=== PATIENT | male | born 1985 | race Caucasian/White ===

== ENCOUNTER 2023-01-01 11:25 | Inpatient (IN) | payer MEDICARE, MEDICAID ==
[2023-01-01 11:34] LABS: Actual Bicarbonate (HCO3a) 23.8 mEq/L (22-28); Analyzer IN Cardio ER; Base Excess (BEa) -5.4 mEq/L (-2.0 to +3.0); Calcium, Ionized (arterial) 1.14 mmol/L (1.12-1.30); Carboxyhemoglobin (COHb) 0.5 gm% (0.0-3.0); Hematocrit-ABG 38 % (42.0-52.0); Hemoglobin (Hb) 12.8 g/dL (14.0-18.0); O2 Tension (PaO2), arterial 126.2 mmHg (80.0-100.0); Potassium - ABG Lab 5.04 mmol/L (3.70-5.30)
[2023-01-01 11:37] LABS: CO2 Tension 64.8 mmHg (35.0-45.0); Puncture Site RRA; pH, Arterial 7.183 (7.35-7.45)
[2023-01-01] MEDS ORDERED: Sodium Bicarb 50 MEQ/50 ML VIAL ONE (11:37)
[2023-01-01] MEDS ORDERED: Propofol BOLUS 1,000 MG/100 ML VIAL IV PRN (11:45)
[2023-01-01] MEDS ORDERED: DISCONTINUE PREVIOUS NARCOTIC PAIN MEDICATIONS AND BENZODIAZEPINES FS SCH (11:45)
[2023-01-01] MEDS ORDERED: Fentanyl CADD 100 ML IV SCH (11:45)
[2023-01-01] MEDS ORDERED: Fentanyl BOLUS 250 ML IVPB PRN (11:45)
[2023-01-01] MEDS ORDERED: Iopamidol-370 76% 500 ML MDV (1 ML CHARGE) ONE (11:49)
[2023-01-01 11:55] LABS: #Monocytes 0.7 thou/uL (0.11-0.59); %Basophils 0.4 % (0.0-1.0); %Eosinophils 0.3 % (0.0-10.0); %Monocytes 7.3 % (0.0-10.0); %Neutrophils 71.8 % (42.0-75.0); Hematocrit 41.4 % (42.0-52.0); Hemoglobin 12.1 g/dL (14.0-18.0); Mean Corpuscular HGB CONC 29.2 g/dL (32.0-36.0); Mean Corpuscular Hemoglobin 30.7 pg (27.0-31.0); Mean Corpuscular Volume 105.1 fl (78.0-98.0); Mean Platelet Volume 11.2 fL (7.4-10.4); Platelet Count 158 10x3/uL (130-400); RBC Distribution Width 16.6 % (11.5-14.5); Red Blood Cell (RBC) Count 3.94 mill/uL (4.70-6.10); White Blood Cell (WBC) Count 9.8 10x3/uL (4.8-10.8)
[2023-01-01] MEDS ORDERED: Propofol 1,000 MG/100 ML VIAL IV ONE (11:56)
[2023-01-01] MEDS ORDERED: Vancomycin 1 GM/200 ML (FROZEN) BAG ONE (12:13)
[2023-01-01] MEDS ORDERED: CEFAZOLIN 2 GM VIAL ONE (12:13)
[2023-01-01 12:20] LABS: ALT (SGPT) 23 U/L (8-55); AST (SGOT) 21 U/L (5-34); Albumin 3.6 g/dL (3.5-5.0); Alkaline Phosphatase 76 U/L (40-110); Anion Gap 14 mmol/L (10-20); BUN (Urea Nitrogen) 18 mg/dL (8.9-20.6); Bilirubin, Total Less than 0.2 mg/dL (0.2-1.2); Calc. Creatinine Clearance 0 mL/min (70-130); Calcium 8.4 mg/dL (7.8-10.44); Carbon Dioxide 22 mmol/L (22-29); Chloride 109 mmol/L (98-107); Estimated GFR 115; Globulin 2.7 g/dL (2.4-3.5); Glucose 121 mg/dL (70-105); Potassium 5.4 mmol/L (3.5-5.1); Protein, Total 6.3 g/dL (6.0-8.3); Sodium 140 mmol/L (136-145)
[2023-01-01 12:21] LABS: Actual Bicarbonate (HCO3a) 20.8 mEq/L (22-28); Analyzer IN Cardio ER; Base Excess (BEa) -1.2 mEq/L (-2.0 to +3.0); CO2 Tension 26.8 mmHg (35.0-45.0); Calcium, Ionized (arterial) 1.05 mmol/L (1.12-1.30); Hematocrit-ABG 35 % (42.0-52.0); Hemoglobin (Hb) 11.8 g/dL (14.0-18.0); O2 Tension (PaO2), arterial 284.1 mmHg (80.0-100.0); Potassium - ABG Lab 4.25 mmol/L (3.70-5.30); pH, Arterial 7.507 (7.35-7.45)
[2023-01-01 12:22] LABS: Puncture Site RRA
[2023-01-01 12:25] LABS: PTT 35.1 sec (22.9-36.1); Prothrombin Time 13.8 sec (12.0-14.7)
[2023-01-01] MEDS ORDERED: Cefepime 2 GM in Sodium Chloride 0.9% 100 ML IVPB SCH (12:30)
[2023-01-01 12:40] LABS: Amphetamine Not Detected (NotDetected); Barbiturates Screen Not Detected (NotDetected); Benzodiazepine Screen Detected (NotDetected); Cocaine Metabolite Screen Not Detected (NotDetected); Methadone Not Detected (NotDetected); Methamphetamine Not Detected (NotDetected); Opiate Screen Detected (NotDetected); Oxycodone Screen Detected (NotDetected); Phencyclidine (PCP) Not Detected (NotDetected); THC/Cannabinoid Screen Detected (NotDetected); Tricyclic Screen Not Detected (NotDetected)
[2023-01-01 12:45] LABS: Bilirubin Negative (Negative); Blood, Urine 2+ (Negative); CAUTI Indications for Culture Alt mental st,lethar; Clarity Clear (Clear); Glucose, Urine (Dipstick) Normal (Negative); Ketone, Urine Negative (Negative); Leukocyte 250 Leu/uL (Negative); Nitrite Negative (Negative); Protein, Urine (Dipstick) 70 mg/dL (Neg-Trace); RBC/HPF 21-50 HPF (0-3); Specific Gravity, Urine 1.023 (1.002-1.036); Squamous Epithelial 0-3 HPF (0-3); Urobilinogen Normal mg/dL (Less than 2); WBC/HPF 21-50 HPF (0-3); pH, Urine 6.5 (5.0-9.0)
[2023-01-01 12:47] LABS: Bacteria/HPF 1+ HPF (None Seen)
[2023-01-01 12:48] LABS: Urine Culture Reflex Yes Yes
[2023-01-01 12:59] LABS: Acetaminophen Less than 10 mcg/mL (10.0-30.0); Alcohol Less than 10.0 mg/dL (Less than 10); Salicylate Less than 8.0 mg/dL (15.0-30.0)
[2023-01-01 13:19] LABS: SARS-CoV-2 NAA Rapid Test Not Detected (NotDetected)
[2023-01-01] MEDS ORDERED: Aspirin 300 MG Suppository ONE (14:26)
[2023-01-01] MEDS ORDERED: Lidocaine 1% (PF) 30 ML VIAL ONE (14:51)
[2023-01-01] MEDS ORDERED: EPINEPHrine 1 MG/ML AMP ONE (14:51)
[2023-01-01] MEDS ORDERED: Bupivacaine HCl 0.5%/Epinephrine 1:200,000/PF 30 ml Vial ONE (14:51)
[2023-01-01] MEDS ORDERED: Midazolam HCl 2 mg/2 ml Vial ONE (15:03)
[2023-01-01] MEDS ORDERED: fentaNYL PF 100 MCG/2 ML SYRINGE ONE (15:03)
[2023-01-01 15:24] LABS: CKMB 9.3 ng/mL (0-6.6)
[2023-01-01] MEDS ORDERED: Ondansetron PF 4 MG/2 ML Vial IVP PRN (15:33)
[2023-01-01] MEDS ORDERED: Ipratropium/Albuterol 3 ML NEB NEB PRN (15:33)
[2023-01-01] MEDS ORDERED: Bisacodyl 5 MG TAB PO PRN (15:33)
[2023-01-01] MEDS ORDERED: Ondansetron PF 4 MG/2 ML Vial ONE (15:45)
[2023-01-01] MEDS ORDERED: Rocuronium Bromide 10 MG/ML (10ML VIAL) ONE (15:45)
[2023-01-01] MEDS: Propofol 1,000 MG/100 ML VIAL IV PRN (17:40)
[2023-01-01 18:11] LABS: Critical Call Chem Troponin I DECREASE
[2023-01-01] MEDS: Ipratropium/Albuterol 3 ML NEB NEB SCH ×2 (19:00→23:04)
[2023-01-01] MEDS: Vancomycin 1 GM in Premix Bag 1 BAG IVPB SCH (20:02)
[2023-01-01 20:54] LABS: Troponin I 0.868 ng/mL (< 0.028)
[2023-01-01] MEDS ORDERED: Vancomycin HCl 1 GM in Sodium Chloride 0.9% 250 ML 250 ML IVPB SCH (21:00)
[2023-01-01] MEDS: Cefepime 2 GM in Sodium Chloride 0.9% 100 ML IVPB SCH (21:44)
[2023-01-01] MEDS: metroNIDAZOLE 500 MG in Premix Bag 1 BAG IVPB SCH (22:55)
[2023-01-02] MEDS: Propofol 1,000 MG/100 ML VIAL IV PRN ×4 (00:04→21:47)
[2023-01-02] MEDS: Lorazepam 2 MG/ML VIAL SLOW IVP PRN ×3 (00:34→12:59)
[2023-01-02] MEDS: Vancomycin 1 GM in Premix Bag 1 BAG IVPB SCH ×3 (03:20→19:42)
[2023-01-02 05:12] LABS: #Monocytes 0.7 thou/uL (0.11-0.59); #Neutrophils 7.5 thou/uL (1.40-6.50); %Basophils 0.3 % (0.0-1.0); %Lymphocytes 11.6 % (21.0-51.0); %Monocytes 7.8 % (0.0-10.0); %Neutrophils 79.6 % (42.0-75.0); Hematocrit 36.7 % (42.0-52.0); Hemoglobin 11.9 g/dL (14.0-18.0); Mean Corpuscular HGB CONC 32.4 g/dL (32.0-36.0); Mean Corpuscular Hemoglobin 31.2 pg (27.0-31.0); Mean Platelet Volume 11.9 fL (7.4-10.4); Platelet Count 169 10x3/uL (130-400); RBC Distribution Width 15.9 % (11.5-14.5); Red Blood Cell (RBC) Count 3.81 mill/uL (4.70-6.10); White Blood Cell (WBC) Count 9.4 10x3/uL (4.8-10.8)
[2023-01-02] MEDS: metroNIDAZOLE 500 MG in Premix Bag 1 BAG IVPB SCH ×3 (05:35→21:22)
[2023-01-02 05:39] LABS: Anion Gap 13 mmol/L (10-20); BUN (Urea Nitrogen) 12 mg/dL (8.9-20.6); Calc. Creatinine Clearance 233 mL/min (70-130); Calcium 8.5 mg/dL (7.8-10.44); Carbon Dioxide 26 mmol/L (22-29); Chloride 107 mmol/L (98-107); Estimated GFR 132; Glucose 114 mg/dL (70-105); Potassium 3.4 mmol/L (3.5-5.1); Sodium 143 mmol/L (136-145)
[2023-01-02 06:12] LABS: Mean Corpuscular Volume 96.3 fl (78.0-98.0)
[2023-01-02] MEDS: Ipratropium/Albuterol 3 ML NEB NEB SCH ×4 (07:13→23:23)
[2023-01-02] MEDS: Morphine 2 MG/ML VIAL SLOW IVP PRN ×3 (07:31→21:22)
[2023-01-02] MEDS: Cefepime 2 GM in Sodium Chloride 0.9% 100 ML IVPB SCH ×2 (07:31→21:06)
[2023-01-02 11:31] LABS: Vancomycin, Trough 18.7 ug/mL
[2023-01-02] MEDS ORDERED: Fleet Saline Enema 133 ML BOT PR SCH (22:15)
[2023-01-03] MEDS: Morphine 2 MG/ML VIAL SLOW IVP PRN ×3 (01:33→12:09)
[2023-01-03] MEDS: Vancomycin 1 GM in Premix Bag 1 BAG IVPB SCH (03:06)
[2023-01-03] MEDS: Propofol 1,000 MG/100 ML VIAL IV PRN (03:06)
[2023-01-03 04:35] LABS: Mean Corpuscular Hemoglobin 30.8 pg (27.0-31.0)
[2023-01-03 04:36] LABS: Hematocrit 32.6 % (42.0-52.0); Hemoglobin 10.5 g/dL (14.0-18.0); Mean Corpuscular HGB CONC 32.2 g/dL (32.0-36.0); Mean Corpuscular Volume 95.6 fl (78.0-98.0); Mean Platelet Volume 11.7 fL (7.4-10.4); Platelet Count 111 10x3/uL (130-400); RBC Distribution Width 16.4 % (11.5-14.5); Red Blood Cell (RBC) Count 3.41 mill/uL (4.70-6.10); White Blood Cell (WBC) Count 5.1 10x3/uL (4.8-10.8)
[2023-01-03 05:09] LABS: Anion Gap 14 mmol/L (10-20); BUN (Urea Nitrogen) 9 mg/dL (8.9-20.6); Calc. Creatinine Clearance 282 mL/min (70-130); Calcium 8.8 mg/dL (7.8-10.44); Carbon Dioxide 24 mmol/L (22-29); Chloride 110 mmol/L (98-107); Estimated GFR 140; Glucose 107 mg/dL (70-105); Potassium 3.1 mmol/L (3.5-5.1); Sodium 145 mmol/L (136-145)
[2023-01-03 05:30] LABS: Troponin I 0.548 ng/mL (< 0.028)
[2023-01-03] MEDS: metroNIDAZOLE 500 MG in Premix Bag 1 BAG IVPB SCH (05:51)
[2023-01-03] MEDS: Ipratropium/Albuterol 3 ML NEB NEB SCH ×4 (07:11→23:44)
[2023-01-03] MEDS: Cefepime 2 GM in Sodium Chloride 0.9% 100 ML IVPB SCH ×2 (08:08→20:41)
[2023-01-03] MEDS: Potassium Chloride 20 MEQ in Premix Bag 1 BAG IVPB SCH ×2 (09:49→11:42)
[2023-01-03] MEDS: DULoxetine 60 MG CAP PO SCH (12:12)
[2023-01-03] MEDS: Lorazepam 2 MG/ML VIAL SLOW IVP PRN (13:25)
[2023-01-03] MEDS: Pregabalin 50 MG CAP PO SCH ×2 (14:31→20:41)
[2023-01-03] MEDS: Baclofen 10 MG TAB PO SCH ×2 (14:31→20:41)
[2023-01-03] MEDS: Lorazepam 1 MG TAB PO SCH ×3 (15:16→21:55)
[2023-01-03] MEDS ORDERED: Fleet Saline Enema 133 ML BOT PR SCH (21:45)
[2023-01-03] MEDS: diphenhydrAMINE 50 MG/ML VIAL IVP SCH (21:55)
[2023-01-04] MEDS: Morphine 2 MG/ML VIAL SLOW IVP PRN ×6 (01:23→14:10)
[2023-01-04] MEDS: diphenhydrAMINE 50 MG/ML VIAL IVP SCH (01:24)
[2023-01-04] MEDS: Lorazepam 1 MG TAB PO SCH (02:33)
[2023-01-04 06:52] LABS: Hematocrit 34.6 % (42.0-52.0); Hemoglobin 11.5 g/dL (14.0-18.0); Mean Corpuscular HGB CONC 33.2 g/dL (32.0-36.0); Mean Corpuscular Hemoglobin 30.5 pg (27.0-31.0); Mean Corpuscular Volume 91.8 fl (78.0-98.0); Mean Platelet Volume 11.2 fL (7.4-10.4); Platelet Count 136 10x3/uL (130-400); RBC Distribution Width 16.5 % (11.5-14.5); Red Blood Cell (RBC) Count 3.77 mill/uL (4.70-6.10); White Blood Cell (WBC) Count 7.6 10x3/uL (4.8-10.8)
[2023-01-04 07:18] LABS: Anion Gap 20 mmol/L (10-20); BUN (Urea Nitrogen) 7 mg/dL (8.9-20.6); Calc. Creatinine Clearance 268 mL/min (70-130); Calcium 8.8 mg/dL (7.8-10.44); Carbon Dioxide 18 mmol/L (22-29); Chloride 109 mmol/L (98-107); Estimated GFR 138; Glucose 93 mg/dL (70-105); Sodium 144 mmol/L (136-145)
[2023-01-04] MEDS: Ipratropium/Albuterol 3 ML NEB NEB SCH ×4 (07:23→23:20)
[2023-01-04 07:48] LABS: Potassium 2.5 mmol/L (3.5-5.1)
[2023-01-04] MEDS ORDERED: Electrolyte Replacement Protocol FS PRN (08:15)
[2023-01-04] MEDS ORDERED: Potassium Bicarbonate/Cit Ac 20 MEQ TAB PO SCH (08:15)
[2023-01-04] MEDS ORDERED: Potassium Chloride 40 MEQ in Premix Bag 1 BAG IVPB SCH (08:15)
[2023-01-04] MEDS: Cefepime 2 GM in Sodium Chloride 0.9% 100 ML IVPB SCH ×2 (08:25→20:04)
[2023-01-04] MEDS: Baclofen 10 MG TAB PO SCH ×3 (08:26→20:03)
[2023-01-04] MEDS: Pregabalin 50 MG CAP PO SCH ×3 (08:26→20:03)
[2023-01-04] MEDS: DULoxetine 60 MG CAP PO SCH (08:27)
[2023-01-04 09:05] LABS: Magnesium 1.5 mg/dL (1.6-2.6)
[2023-01-04] MEDS ORDERED: Magnesium 2 GM/50 ML(in water) 2 GM in Premix Bag 1 BAG IVPB SCH (09:15)
[2023-01-04] MEDS ORDERED: Senokot S 8.6-50 MG TAB PO PRN (13:21)
[2023-01-04] MEDS ORDERED: oxyCODONE/Acetaminophen 5 mg/325 mg Tablet PO PRN (14:44)
[2023-01-04] MEDS ORDERED: Fentanyl 100 MCG/2 ML VIAL SLOW IVP PRN (14:45)
[2023-01-04 16:30] LABS: Potassium 3.5 mmol/L (3.5-5.1)
[2023-01-04] MEDS ORDERED: fentaNYL 50 mcg/mL 1 mL Vial SLOW IVP PRN (17:30)
[2023-01-04] MEDS: Acetaminophen 325 MG TAB PO PRN (20:02)
[2023-01-04] MEDS: diphenhydrAMINE 12.5 MG/5 ML UDCUP PO PRN (21:01)
[2023-01-05] MEDS: Acetaminophen 325 MG TAB PO PRN (02:51)
[2023-01-05 04:45] LABS: Hematocrit 32.3 % (42.0-52.0); Hemoglobin 10.6 g/dL (14.0-18.0); Mean Corpuscular HGB CONC 32.8 g/dL (32.0-36.0); Mean Corpuscular Hemoglobin 31.1 pg (27.0-31.0); Mean Platelet Volume 11.3 fL (7.4-10.4); Platelet Count 130 10x3/uL (130-400); Red Blood Cell (RBC) Count 3.41 mill/uL (4.70-6.10); White Blood Cell (WBC) Count 6.6 10x3/uL (4.8-10.8)
[2023-01-05 04:56] LABS: Mean Corpuscular Volume 94.7 fl (78.0-98.0)
[2023-01-05 05:12] LABS: Anion Gap 10 mmol/L (10-20); BUN (Urea Nitrogen) 16 mg/dL (8.9-20.6); Calc. Creatinine Clearance 315 mL/min (70-130); Calcium 8.1 mg/dL (7.8-10.44); Carbon Dioxide 22 mmol/L (22-29); Chloride 110 mmol/L (98-107); Estimated GFR 145; Glucose 109 mg/dL (70-105); Magnesium 2.1 mg/dL (1.6-2.6); Potassium 3.8 mmol/L (3.5-5.1); Sodium 138 mmol/L (136-145)
[2023-01-05 05:14] LABS: Phosphorus 3.1 mg/dL (2.3-4.7)
[2023-01-05] MEDS: Ipratropium/Albuterol 3 ML NEB NEB SCH ×4 (07:44→23:58)
[2023-01-05] MEDS: Pregabalin 50 MG CAP PO SCH ×3 (08:01→20:32)
[2023-01-05] MEDS: DULoxetine 60 MG CAP PO SCH (08:01)
[2023-01-05] MEDS: Baclofen 10 MG TAB PO SCH ×3 (08:03→20:33)
[2023-01-05] MEDS: Morphine 2 MG/ML VIAL SLOW IVP PRN ×2 (08:09→10:07)
[2023-01-05] MEDS: Cefepime 2 GM in Sodium Chloride 0.9% 100 ML IVPB SCH ×2 (09:07→20:33)
[2023-01-05] MEDS: oxyCODONE/Acetaminophen 5 mg/325 mg Tablet PO PRN ×3 (15:11→23:37)
[2023-01-05] MEDS: diphenhydrAMINE 12.5 MG/5 ML UDCUP PO PRN (21:17)
[2023-01-06] MEDS: oxyCODONE/Acetaminophen 5 mg/325 mg Tablet PO PRN ×4 (03:26→20:24)
[2023-01-06 04:55] LABS: #Basophils 0.1 thou/uL (0.0-0.2); #Eosinphils 0.4 thou/uL (0.0-0.7); #Monocytes 0.7 thou/uL (0.11-0.59); #Neutrophils 5.3 thou/uL (1.40-6.50); %Monocytes 7.8 % (0.0-10.0); %Neutrophils 56.5 % (42.0-75.0); Hematocrit 36.4 % (42.0-52.0); Mean Corpuscular Hemoglobin 30.5 pg (27.0-31.0); Mean Corpuscular Volume 92.6 fl (78.0-98.0); Mean Platelet Volume 11.6 fL (7.4-10.4); Platelet Count 142 10x3/uL (130-400); RBC Distribution Width 17.1 % (11.5-14.5); Red Blood Cell (RBC) Count 3.93 mill/uL (4.70-6.10); White Blood Cell (WBC) Count 9.5 10x3/uL (4.8-10.8)
[2023-01-06 05:20] LABS: Anion Gap 15 mmol/L (10-20); BUN (Urea Nitrogen) 13 mg/dL (8.9-20.6); Calc. Creatinine Clearance 289 mL/min (70-130); Calcium 9.1 mg/dL (7.8-10.44); Carbon Dioxide 20 mmol/L (22-29); Chloride 111 mmol/L (98-107); Estimated GFR 141; Glucose 77 mg/dL (70-105); Potassium 3.6 mmol/L (3.5-5.1); Sodium 142 mmol/L (136-145)
[2023-01-06] MEDS: Ipratropium/Albuterol 3 ML NEB NEB SCH ×3 (07:04→18:28)
[2023-01-06] MEDS: Cefepime 2 GM in Sodium Chloride 0.9% 100 ML IVPB SCH ×2 (08:05→20:23)
[2023-01-06] MEDS: Pregabalin 50 MG CAP PO SCH ×3 (08:33→20:25)
[2023-01-06] MEDS: Baclofen 10 MG TAB PO SCH ×3 (08:34→20:25)
[2023-01-06] MEDS: DULoxetine 60 MG CAP PO SCH (08:34)
[2023-01-06] MEDS: Acetaminophen 325 MG TAB PO PRN (09:47)
[2023-01-06] MEDS ORDERED: Bisacodyl 10 MG SUPP PR PRN (12:25)
[2023-01-06] MEDS ORDERED: Bisacodyl 5 MG TAB PO PRN (12:29)
[2023-01-06] MEDS: Morphine 2 MG/ML VIAL SLOW IVP PRN ×2 (14:11→21:47)
[2023-01-07] MEDS: Ipratropium/Albuterol 3 ML NEB NEB SCH ×4 (01:43→18:23)
[2023-01-07] MEDS: Morphine 2 MG/ML VIAL SLOW IVP PRN ×4 (01:59→17:53)
[2023-01-07] MEDS: oxyCODONE/Acetaminophen 5 mg/325 mg Tablet PO PRN ×2 (05:10→15:43)
[2023-01-07] MEDS: Cefepime 2 GM in Sodium Chloride 0.9% 100 ML IVPB SCH ×2 (08:50→20:38)
[2023-01-07] MEDS: Pregabalin 50 MG CAP PO SCH ×3 (08:50→20:37)
[2023-01-07] MEDS: DULoxetine 60 MG CAP PO SCH (08:54)
[2023-01-07] MEDS: Baclofen 10 MG TAB PO SCH ×3 (08:54→20:37)
[2023-01-07] MEDS ORDERED: Fleet Saline Enema 133 ML BOT PR SCH (22:30)
[2023-01-08] MEDS: Ipratropium/Albuterol 3 ML NEB NEB SCH ×4 (01:25→18:31)
[2023-01-08 04:30] LABS: Anion Gap 11 mmol/L (10-20); BUN (Urea Nitrogen) 17 mg/dL (8.9-20.6); Calc. Creatinine Clearance 267 mL/min (70-130); Calcium 9.1 mg/dL (7.8-10.44); Carbon Dioxide 23 mmol/L (22-29); Chloride 110 mmol/L (98-107); Estimated GFR 138; Glucose 96 mg/dL (70-105); Potassium 3.7 mmol/L (3.5-5.1); Sodium 140 mmol/L (136-145)
[2023-01-08] MEDS: oxyCODONE/Acetaminophen 5 mg/325 mg Tablet PO PRN ×4 (09:03→20:46)
[2023-01-08] MEDS: Baclofen 10 MG TAB PO SCH ×3 (09:04→20:45)
[2023-01-08] MEDS: DULoxetine 60 MG CAP PO SCH (09:04)
[2023-01-08] MEDS: Pregabalin 50 MG CAP PO SCH ×3 (09:04→20:45)
[2023-01-08] MEDS: Cefepime 2 GM in Sodium Chloride 0.9% 100 ML IVPB SCH (09:05)
[2023-01-08] MEDS ORDERED: guaiFENesin ER 600 MG TAB PO SCH (13:15)
[2023-01-08] MEDS: guaiFENesin ER 600 MG TAB PO SCH (20:45)
[2023-01-09] MEDS: Morphine 2 MG/ML VIAL SLOW IVP PRN ×4 (00:24→21:14)
[2023-01-09] MEDS: Acetaminophen 325 MG TAB PO PRN (00:31)
[2023-01-09] MEDS: Ipratropium/Albuterol 3 ML NEB NEB SCH ×4 (01:23→18:30)
[2023-01-09 05:56] LABS: Anion Gap 13 mmol/L (10-20); BUN (Urea Nitrogen) 14 mg/dL (8.9-20.6); Calc. Creatinine Clearance 273 mL/min (70-130); Calcium 8.9 mg/dL (7.8-10.44); Carbon Dioxide 23 mmol/L (22-29); Chloride 107 mmol/L (98-107); Estimated GFR 139; Glucose 110 mg/dL (70-105); Potassium 3.5 mmol/L (3.5-5.1); Sodium 139 mmol/L (136-145)
[2023-01-09] MEDS ORDERED: Potassium Chloride 20 MEQ TAB PO SCH (08:00)
[2023-01-09] MEDS: Baclofen 10 MG TAB PO SCH ×3 (09:02→20:32)
[2023-01-09] MEDS: guaiFENesin ER 600 MG TAB PO SCH (09:02)
[2023-01-09] MEDS: DULoxetine 60 MG CAP PO SCH (09:02)
[2023-01-09] MEDS: Pregabalin 50 MG CAP PO SCH ×3 (09:03→20:32)
[2023-01-09] MEDS: oxyCODONE/Acetaminophen 5 mg/325 mg Tablet PO PRN ×4 (09:05→23:14)
[2023-01-09] MEDS ORDERED: Furosemide 20 MG/2 ML VIAL SLOW IVP SCH (11:15)
[2023-01-09 14:18] LABS: Potassium 4.2 mmol/L (3.5-5.1)
[2023-01-10] MEDS: Ipratropium/Albuterol 3 ML NEB NEB SCH ×4 (00:24→19:29)
[2023-01-10] MEDS: Morphine 2 MG/ML VIAL SLOW IVP PRN ×5 (01:13→21:51)
[2023-01-10 06:28] LABS: Anion Gap 12 mmol/L (10-20); BUN (Urea Nitrogen) 10 mg/dL (8.9-20.6); Calc. Creatinine Clearance 308 mL/min (70-130); Carbon Dioxide 25 mmol/L (22-29); Chloride 104 mmol/L (98-107); Estimated GFR 144; Glucose 87 mg/dL (70-105); Potassium 3.8 mmol/L (3.5-5.1); Sodium 137 mmol/L (136-145)
[2023-01-10 06:58] LABS: Actual Bicarbonate (HCO3v) 26.3 mEq/L (22-28); Base Excess 0.1 mEq/L (-2.0 to +3.0); Calcium, Ionized (venous) 1.18 mmol/L (1.16-1.32); Chloride (VBG) 103 mmol/L (98-106); Hematocrit-VBG 40 % (42.0-52.0); Hemoglobin (Hb) 13.5 g/dL (13.2-17.3); Potassium (VBG) 3.77 mmol/L (3.70-5.30); Sodium 136.5 mmol/L (133-146)
[2023-01-10] MEDS ORDERED: guaiFENesin ER 600 MG TAB PO SCH (09:00)
[2023-01-10] MEDS: Pregabalin 50 MG CAP PO SCH ×3 (09:37→21:51)
[2023-01-10] MEDS: Baclofen 10 MG TAB PO SCH ×3 (09:38→21:48)
[2023-01-10] MEDS: oxyCODONE/Acetaminophen 5 mg/325 mg Tablet PO PRN ×2 (09:38→14:03)
[2023-01-10] MEDS: guaiFENesin ER 600 MG TAB PO SCH (09:38)
[2023-01-10] MEDS: DULoxetine 60 MG CAP PO SCH (09:39)
[2023-01-10 11:34] VITALS: BMI 24.7
[2023-01-10] MEDS ORDERED: Fleet Saline Enema 133 ML BOT PR SCH (23:15)
[2023-01-11] MEDS: Ipratropium/Albuterol 3 ML NEB NEB SCH ×4 (00:33→18:35)
[2023-01-11] MEDS: oxyCODONE/Acetaminophen 5 mg/325 mg Tablet PO PRN ×3 (00:55→21:41)
[2023-01-11] MEDS: Baclofen 10 MG TAB PO SCH ×3 (08:46→21:41)
[2023-01-11] MEDS: Pregabalin 50 MG CAP PO SCH ×3 (08:47→21:41)
[2023-01-11] MEDS: guaiFENesin ER 600 MG TAB PO SCH (08:47)
[2023-01-11] MEDS: DULoxetine 60 MG CAP PO SCH (08:48)
[2023-01-11] MEDS: Morphine 2 MG/ML VIAL SLOW IVP PRN ×4 (08:54→22:41)
[2023-01-11 12:37] LABS: Anion Gap 13 mmol/L (10-20); BUN (Urea Nitrogen) 20 mg/dL (8.9-20.6); Calc. Creatinine Clearance 286 mL/min (70-130); Calcium 9.3 mg/dL (7.8-10.44); Carbon Dioxide 27 mmol/L (22-29); Chloride 102 mmol/L (98-107); Estimated GFR 141; Glucose 76 mg/dL (70-105); Potassium 3.9 mmol/L (3.5-5.1); Sodium 138 mmol/L (136-145)
[2023-01-12 04:47] LABS: Anion Gap 13 mmol/L (10-20); BUN (Urea Nitrogen) 17 mg/dL (8.9-20.6); Calc. Creatinine Clearance 300 mL/min (70-130); Carbon Dioxide 23 mmol/L (22-29); Chloride 108 mmol/L (98-107); Estimated GFR 143; Glucose 80 mg/dL (70-105); Potassium 3.3 mmol/L (3.5-5.1); Sodium 141 mmol/L (136-145)
[2023-01-12] MEDS: Ipratropium/Albuterol 3 ML NEB NEB SCH ×5 (07:02→23:51)
[2023-01-12] MEDS ORDERED: Potassium Chloride 20 MEQ TAB PO SCH (08:00)
[2023-01-12] MEDS: DULoxetine 60 MG CAP PO SCH (08:12)
[2023-01-12] MEDS: Baclofen 10 MG TAB PO SCH ×3 (08:13→20:01)
[2023-01-12] MEDS: Pregabalin 50 MG CAP PO SCH ×3 (08:13→20:01)
[2023-01-12] MEDS: guaiFENesin ER 600 MG TAB PO SCH (08:13)
[2023-01-12] MEDS: Morphine 2 MG/ML VIAL SLOW IVP PRN ×3 (09:34→20:28)
[2023-01-12] MEDS: oxyCODONE/Acetaminophen 5 mg/325 mg Tablet PO PRN (19:57)
[2023-01-12] MEDS ORDERED: Fleet Saline Enema 133 ML BOT PR SCH (22:15)
[2023-01-13] MEDS: Morphine 2 MG/ML VIAL SLOW IVP PRN ×5 (00:52→21:02)
[2023-01-13 04:31] LABS: Anion Gap 8 mmol/L (10-20); BUN (Urea Nitrogen) 23 mg/dL (8.9-20.6); Calc. Creatinine Clearance 262 mL/min (70-130); Calcium 8.7 mg/dL (7.8-10.44); Carbon Dioxide 27 mmol/L (22-29); Chloride 107 mmol/L (98-107); Estimated GFR 137; Glucose 97 mg/dL (70-105); Potassium 3.4 mmol/L (3.5-5.1); Sodium 139 mmol/L (136-145)
[2023-01-13] MEDS: Ipratropium/Albuterol 3 ML NEB NEB SCH (06:20)
[2023-01-13] MEDS ORDERED: Potassium Chloride 20 MEQ TAB PO SCH (08:00)
[2023-01-13] MEDS: oxyCODONE/Acetaminophen 5 mg/325 mg Tablet PO PRN ×4 (08:55→23:10)
[2023-01-13] MEDS: Pregabalin 50 MG CAP PO SCH ×3 (08:56→20:59)
[2023-01-13] MEDS: Baclofen 10 MG TAB PO SCH ×3 (08:56→20:59)
[2023-01-13] MEDS: guaiFENesin ER 600 MG TAB PO SCH (08:57)
[2023-01-13] MEDS: DULoxetine 60 MG CAP PO SCH (08:57)
[2023-01-14] MEDS: Morphine 2 MG/ML VIAL SLOW IVP PRN ×3 (01:24→11:12)
[2023-01-14 06:58] LABS: Anion Gap 12 mmol/L (10-20); BUN (Urea Nitrogen) 16 mg/dL (8.9-20.6); Calc. Creatinine Clearance 327 mL/min (70-130); Calcium 9.1 mg/dL (7.8-10.44); Carbon Dioxide 27 mmol/L (22-29); Chloride 104 mmol/L (98-107); Estimated GFR 142; Glucose 96 mg/dL (70-105); Potassium 4.1 mmol/L (3.5-5.1); Sodium 139 mmol/L (136-145)
[2023-01-14] MEDS: guaiFENesin ER 600 MG TAB PO SCH (09:37)
[2023-01-14] MEDS: DULoxetine 60 MG CAP PO SCH (09:38)
[2023-01-14] MEDS: Baclofen 10 MG TAB PO SCH (09:38)
[2023-01-14] MEDS: Pregabalin 50 MG CAP PO SCH (09:38)
[2023-01-14] MEDS: oxyCODONE/Acetaminophen 5 mg/325 mg Tablet PO PRN (09:40)
[2023-01-14 15:12] VITALS: BP 104/68; TEMP 98.1
== END 2023-01-14 14:35 | disposition home health service (06) | DRG 4 ==
LOC: ERS 11:25 → CCU 13:27 → IMCU/EMU 01-06 14:49 → T4-A 01-07 21:23
PROVIDERS: ADMIT Internal Medicine; ATTEND Internal Medicine
PROC: 02HV33Z Insertion of Infusion Device into Superior Vena Cava, Percutaneous Approach (ICD-10-PCS; principal; 2023-01-01)
PROC: 0B110Z4 Bypass Trachea to Cutaneous, Open Approach (ICD-10-PCS; 2023-01-01)
PROC: 0BH17EZ Insertion of Endotracheal Airway into Trachea, Via Natural or Artificial Opening (ICD-10-PCS; 2023-01-01)
PROC: 4A133R1 Monitoring of Arterial Saturation, Peripheral, Percutaneous Approach (ICD-10-PCS; 2023-01-01)
PROC: 5A1945Z Respiratory Ventilation, 24-96 Consecutive Hours (ICD-10-PCS; 2023-01-01)
PROC: 3E04329 Introduction of Other Anti-infective into Central Vein, Percutaneous Approach (ICD-10-PCS; 2023-01-01)
DX: A41.52 Sepsis due to Pseudomonas (principal); L89.154 Pressure ulcer of sacral region, stage 4; G93.41 Metabolic encephalopathy; I21.A1 Myocardial infarction type 2; J96.21 Acute and chronic respiratory failure with hypoxia; G82.50 Quadriplegia, unspecified; N39.0 Urinary tract infection, site not specified; F11.20 Opioid dependence, uncomplicated; F13.20 Sedative, hypnotic or anxiolytic dependence, uncomplicated; T83.510A Infection and inflammatory reaction due to cystostomy catheter, initial encounter; J39.8 Other specified diseases of upper respiratory tract; M81.0 Age-related osteoporosis without current pathological fracture; F17.290 Nicotine dependence, other tobacco product, uncomplicated; E87.5 Hyperkalemia; E87.6 Hypokalemia; K59.09 Other constipation; Z88.5 Allergy status to narcotic agent; Z79.899 Other long term (current) drug therapy; Z79.2 Long term (current) use of antibiotics; Z20.822 Contact with and (suspected) exposure to COVID-19; G89.4 Chronic pain syndrome; Y84.6 Urinary catheterization as the cause of abnormal reaction of the patient, or of later complication, without mention of misadventure at the time of the procedure; N31.9 Neuromuscular dysfunction of bladder, unspecified
CPT/HCPCS: 31500; 36415; 36556; 36600; 70450; 71045; 71275; 80048; 80053; 80202; 80306; 80307; 81001; 82553; 82805; 83605; 83735; 83880; 84100; 84484; 85025; 85027; 85610; 85730; 87040; 87077; 87086; 87186; 93005; 94002; 94003; 94640; 94760; 96361; 96365; 96375; 97139; J0171; J0692; J1200; J1940; J2001; J2060; J2250; J2272; J2405; J2704; J3010; J3370-JW; J3475; J3480; J3490; J7620; Q0163; Q9967

== ENCOUNTER 2023-06-03 23:10 | Inpatient (IN) | payer MEDICARE, MEDICAID ==
[2023-06-03] MEDS ORDERED: Acetaminophen 500 MG TAB ONE (23:56)
[2023-06-04 00:08] LABS: #Basophils 0.1 thou/uL (0.0-0.2); #Eosinphils 0.1 thou/uL (0.0-0.7); #Monocytes 0.5 thou/uL (0.11-0.59); #Neutrophils 7.3 thou/uL (1.40-6.50); %Basophils 0.6 % (0.0-1.0); %Lymphocytes 10.7 % (21.0-51.0); %Monocytes 5.1 % (0.0-10.0); %Neutrophils 81.7 % (42.0-75.0); Hematocrit 34.6 % (42.0-52.0); Hemoglobin 11.3 g/dL (14.0-18.0); Mean Corpuscular HGB CONC 32.7 g/dL (32.0-36.0); Mean Corpuscular Hemoglobin 29.2 pg (27.0-31.0); Mean Corpuscular Volume 89.4 fl (78.0-98.0); Mean Platelet Volume 10.5 fL (7.4-10.4); Platelet Count 223 10x3/uL (130-400); RBC Distribution Width 16.7 % (11.5-14.5); Red Blood Cell (RBC) Count 3.87 mill/uL (4.70-6.10)
[2023-06-04] MEDS ORDERED: Ondansetron PF 4 MG/2 ML Vial ONE (00:12)
[2023-06-04 00:30] LABS: ALT (SGPT) 12 U/L (8-55); AST (SGOT) 8 U/L (5-34); Albumin 3.7 g/dL (3.5-5.0); Alkaline Phosphatase 86 U/L (40-110); Anion Gap 15 mmol/L (10-20); BUN (Urea Nitrogen) 11 mg/dL (8.9-20.6); Bilirubin, Total 0.3 mg/dL (0.2-1.2); Calc. Creatinine Clearance 0 mL/min (70-130); Calcium 8.6 mg/dL (7.8-10.44); Carbon Dioxide 22 mmol/L (22-29); Chloride 105 mmol/L (98-107); Estimated GFR 130; Globulin 3.2 g/dL (2.4-3.5); Glucose 118 mg/dL (70-105); Potassium 3.4 mmol/L (3.5-5.1); Protein, Total 6.9 g/dL (6.0-8.3); Sodium 139 mmol/L (136-145)
[2023-06-04] MEDS ORDERED: fentaNYL 50 mcg/mL 1 mL Vial ONE (01:10)
[2023-06-04 01:16] LABS: Lipase 15 U/L (8-78); Magnesium 1.7 mg/dL (1.6-2.6)
[2023-06-04 01:21] LABS: Troponin I Less than 0.010 ng/mL (< 0.028)
[2023-06-04 01:27] LABS: SARS-CoV-2 NAA Rapid Test Not Detected (NotDetected)
[2023-06-04] MEDS ORDERED: Cefepime 2 GM VIAL ONE (02:20)
[2023-06-04] MEDS ORDERED: Sodium Chloride 0.9% 100 ML ONE (02:21)
[2023-06-04] MEDS ORDERED: Ondansetron PF 4 MG/2 ML Vial IVP PRN (04:00)
[2023-06-04] MEDS ORDERED: Acetaminophen 325 MG TAB PO PRN (04:00)
[2023-06-04] MEDS ORDERED: Ondansetron ODT 4 MG TAB SL PRN (04:00)
[2023-06-04] MEDS ORDERED: Ipratropium/Albuterol 3 ML NEB NEB PRN (04:08)
[2023-06-04 05:48] VITALS: BMI 22.4
[2023-06-04] MEDS: Ipratropium/Albuterol 3 ML NEB NEB SCH ×5 (07:37→23:30)
[2023-06-04] MEDS ORDERED: FLU VACC QS2023-24(6MOS UP)/PF 60 MCG/0.5 ML SYRINGE IM ONE (09:00)
[2023-06-04] MEDS: Enoxaparin 40 MG (0.4 mL) SYRINGE SC SCH (09:11)
[2023-06-04] MEDS: Azithromycin 500 MG in Sodium Chloride 0.9% 250 ML 250 ML IVPB SCH (09:11)
[2023-06-04] MEDS ORDERED: Non-Formulary Item 1 EACH (Oxycodone Hcl/Acetaminophen [Oxycodone-Acetaminophen 10-325] 1 PO PRN (10:30)
[2023-06-04] MEDS ORDERED: oxyCODONE/Acetaminophen 5 mg/325 mg Tablet PO PRN ×3 (10:35→11:03)
[2023-06-04] MEDS ORDERED: Iopamidol 370 76% 100 ML VIAL ONE (10:43)
[2023-06-04] MEDS ORDERED: Baclofen 10 MG TAB PO SCH ×2 (10:45→15:00)
[2023-06-04] MEDS: Morphine 2 MG/ML VIAL SLOW IVP PRN ×2 (11:10→20:18)
[2023-06-04] MEDS: diphenhydrAMINE 25 MG CAP PO SCH ×3 (11:54→23:35)
[2023-06-04] MEDS ORDERED: Non-Formulary Item 1 EACH (Pregabalin [Pregabalin] 200 MG Capsule) PO SCH (15:00)
[2023-06-04] MEDS: Cefepime 2 GM in Sodium Chloride 0.9% 100 ML IVPB SCH (15:26)
[2023-06-04] MEDS: Pregabalin 50 MG CAP PO SCH ×2 (15:26→20:13)
[2023-06-04] MEDS: Baclofen 10 MG TAB PO SCH ×2 (15:27→20:17)
[2023-06-04] MEDS: oxyCODONE/Acetaminophen 5 mg/325 mg Tablet PO PRN (16:38)
[2023-06-04] MEDS: traZODone HCl 50 MG TAB PO SCH (20:17)
[2023-06-05] MEDS: oxyCODONE/Acetaminophen 5 mg/325 mg Tablet PO PRN ×4 (00:28→20:30)
[2023-06-05] MEDS: Cefepime 2 GM in Sodium Chloride 0.9% 100 ML IVPB SCH ×2 (02:29→14:45)
[2023-06-05] MEDS: Ipratropium/Albuterol 3 ML NEB NEB SCH ×6 (02:30→23:07)
[2023-06-05] MEDS: Morphine 2 MG/ML VIAL SLOW IVP PRN ×4 (05:27→22:48)
[2023-06-05] MEDS: diphenhydrAMINE 25 MG CAP PO SCH ×3 (05:32→16:47)
[2023-06-05] MEDS ORDERED: Fleet Saline Enema 133 ML BOT PR PRN (07:44)
[2023-06-05] MEDS: Azithromycin 500 MG in Sodium Chloride 0.9% 250 ML 250 ML IVPB SCH (08:30)
[2023-06-05] MEDS: Enoxaparin 40 MG (0.4 mL) SYRINGE SC SCH (08:31)
[2023-06-05] MEDS: guaiFENesin/DM ER PO SCH ×2 (08:31→20:26)
[2023-06-05] MEDS: Pregabalin 50 MG CAP PO SCH ×3 (08:31→20:27)
[2023-06-05] MEDS: DULoxetine 60 MG CAP PO SCH (08:32)
[2023-06-05] MEDS: Baclofen 10 MG TAB PO SCH ×3 (08:32→20:26)
[2023-06-05] MEDS: Senokot 8.6 MG TAB PO SCH (08:32)
[2023-06-05 09:23] LABS: #Eosinphils 0.2 thou/uL (0.0-0.7); #Monocytes 0.2 thou/uL (0.11-0.59); #Neutrophils 2.4 thou/uL (1.40-6.50); %Basophils 0.7 % (0.0-1.0); %Lymphocytes 29.7 % (21.0-51.0); %Monocytes 5.5 % (0.0-10.0); %Neutrophils 58.1 % (42.0-75.0); Hematocrit 36.8 % (42.0-52.0); Hemoglobin 11.2 g/dL (14.0-18.0); Mean Corpuscular HGB CONC 30.4 g/dL (32.0-36.0); Mean Corpuscular Hemoglobin 27.3 pg (27.0-31.0); Mean Corpuscular Volume 89.8 fl (78.0-98.0); Mean Platelet Volume 10.3 fL (7.4-10.4); Platelet Count 213 10x3/uL (130-400); RBC Distribution Width 16.8 % (11.5-14.5); White Blood Cell (WBC) Count 4.2 10x3/uL (4.8-10.8)
[2023-06-05 10:09] LABS: Anion Gap 13 mmol/L (10-20); BUN (Urea Nitrogen) 10 mg/dL (8.9-20.6); Calc. Creatinine Clearance 303 mL/min (70-130); Calcium 8.7 mg/dL (7.8-10.44); Carbon Dioxide 22 mmol/L (22-29); Chloride 108 mmol/L (98-107); Estimated GFR 144; Glucose 82 mg/dL (70-105); Potassium 3.8 mmol/L (3.5-5.1); Sodium 139 mmol/L (136-145)
[2023-06-05] MEDS: Lactulose 20 GM (30 mL) UDCUP PO PRN (14:44)
[2023-06-05] MEDS: traZODone HCl 50 MG TAB PO SCH (20:28)
[2023-06-06] MEDS: diphenhydrAMINE 25 MG CAP PO SCH ×6 (01:04→23:05)
[2023-06-06] MEDS: Cefepime 2 GM in Sodium Chloride 0.9% 100 ML IVPB SCH ×2 (03:04→15:32)
[2023-06-06] MEDS: Morphine 2 MG/ML VIAL SLOW IVP PRN ×4 (04:42→20:27)
[2023-06-06 06:46] LABS: #Basophils 0.1 thou/uL (0.0-0.2); #Eosinphils 0.3 thou/uL (0.0-0.7); #Monocytes 0.4 thou/uL (0.11-0.59); #Neutrophils 2.5 thou/uL (1.40-6.50); %Basophils 1.2 % (0.0-1.0); %Eosinophils 5.4 % (0.0-10.0); %Lymphocytes 31.5 % (21.0-51.0); %Monocytes 8.7 % (0.0-10.0); %Neutrophils 52.4 % (42.0-75.0); Hematocrit 34.5 % (42.0-52.0); Hemoglobin 10.6 g/dL (14.0-18.0); Mean Corpuscular HGB CONC 30.7 g/dL (32.0-36.0); Mean Corpuscular Hemoglobin 27.7 pg (27.0-31.0); Mean Corpuscular Volume 90.3 fl (78.0-98.0); Mean Platelet Volume 10.9 fL (7.4-10.4); Platelet Count 227 10x3/uL (130-400); RBC Distribution Width 16.8 % (11.5-14.5); Red Blood Cell (RBC) Count 3.82 mill/uL (4.70-6.10); White Blood Cell (WBC) Count 4.8 10x3/uL (4.8-10.8)
[2023-06-06 07:26] LABS: Anion Gap 10 mmol/L (10-20); BUN (Urea Nitrogen) 9 mg/dL (8.9-20.6); Calc. Creatinine Clearance 197 mL/min (70-130); Calcium 8.5 mg/dL (7.8-10.44); Carbon Dioxide 23 mmol/L (22-29); Chloride 106 mmol/L (98-107); Estimated GFR 126; Glucose 95 mg/dL (70-105); Potassium 3.6 mmol/L (3.5-5.1); Sodium 135 mmol/L (136-145)
[2023-06-06] MEDS: Ipratropium/Albuterol 3 ML NEB NEB SCH ×6 (08:07→23:33)
[2023-06-06] MEDS: Enoxaparin 40 MG (0.4 mL) SYRINGE SC SCH (09:01)
[2023-06-06] MEDS: DULoxetine 60 MG CAP PO SCH (09:01)
[2023-06-06] MEDS: Azithromycin 500 MG in Sodium Chloride 0.9% 250 ML 250 ML IVPB SCH (09:01)
[2023-06-06] MEDS: Baclofen 10 MG TAB PO SCH ×3 (09:01→20:29)
[2023-06-06] MEDS: guaiFENesin/DM ER PO SCH ×2 (09:01→20:28)
[2023-06-06] MEDS: Pregabalin 50 MG CAP PO SCH ×3 (09:02→20:29)
[2023-06-06] MEDS: Senokot 8.6 MG TAB PO SCH (09:02)
[2023-06-06] MEDS: Lactulose 20 GM (30 mL) UDCUP PO PRN ×2 (09:04→20:37)
[2023-06-06] MEDS: oxyCODONE/Acetaminophen 5 mg/325 mg Tablet PO PRN ×2 (09:04→18:13)
[2023-06-06] MEDS: traZODone HCl 50 MG TAB PO SCH (20:29)
[2023-06-07] MEDS: oxyCODONE/Acetaminophen 5 mg/325 mg Tablet PO PRN ×3 (00:28→13:38)
[2023-06-07] MEDS: Ipratropium/Albuterol 3 ML NEB NEB SCH ×5 (02:36→18:31)
[2023-06-07] MEDS: Cefepime 2 GM in Sodium Chloride 0.9% 100 ML IVPB SCH (03:49)
[2023-06-07] MEDS: Morphine 2 MG/ML VIAL SLOW IVP PRN ×4 (03:49→19:26)
[2023-06-07] MEDS: diphenhydrAMINE 25 MG CAP PO SCH ×3 (06:38→17:58)
[2023-06-07] MEDS: DULoxetine 60 MG CAP PO SCH (09:03)
[2023-06-07] MEDS: guaiFENesin/DM ER PO SCH ×2 (09:03→20:53)
[2023-06-07] MEDS: Enoxaparin 40 MG (0.4 mL) SYRINGE SC SCH (09:03)
[2023-06-07] MEDS: Baclofen 10 MG TAB PO SCH ×3 (09:03→20:52)
[2023-06-07] MEDS: Senokot 8.6 MG TAB PO SCH (09:03)
[2023-06-07] MEDS: Pregabalin 50 MG CAP PO SCH ×3 (09:03→20:52)
[2023-06-07] MEDS: Lactulose 20 GM (30 mL) UDCUP PO PRN (09:04)
[2023-06-07] MEDS: Azithromycin 500 MG in Sodium Chloride 0.9% 250 ML 250 ML IVPB SCH (10:25)
[2023-06-07 20:36] VITALS: BP 174/114; TEMP 98.9
[2023-06-07] MEDS: traZODone HCl 50 MG TAB PO SCH (20:52)
[2023-06-08] MEDS ORDERED: LevoFLOXacin 750 MG TAB PO SCH (06:00)
== END 2023-06-07 21:45 | disposition home or self-care (01) | DRG 193 ==
LOC: ERS 23:10 → T4-B 06-04 03:09
PROVIDERS: ADMIT Student in an Organized Health Care Education/Training Program; ATTEND Emergency Medicine
DX: J18.9 Pneumonia, unspecified organism (principal); L89.323 Pressure ulcer of left buttock, stage 3; L89.614 Pressure ulcer of right heel, stage 4; L89.624 Pressure ulcer of left heel, stage 4; R53.2 Functional quadriplegia; K27.9 Peptic ulcer, site unspecified, unspecified as acute or chronic, without hemorrhage or perforation; F17.210 Nicotine dependence, cigarettes, uncomplicated; E87.6 Hypokalemia; D64.9 Anemia, unspecified; G89.4 Chronic pain syndrome; Z93.59 Other cystostomy status; Z11.52 Encounter for screening for COVID-19; Z93.0 Tracheostomy status; Z88.5 Allergy status to narcotic agent; Z79.899 Other long term (current) drug therapy; Z93.1 Gastrostomy status
CPT/HCPCS: 36415; 71045; 71275; 80048; 80053; 83605; 83690; 83735; 84145; 84484; 85025; 86140; 93005; 94640; 94760; 96365; 96375; 97139; J0456; J0692; J1650; J2272; J2405; J3010; J3490; J7050; J7620; Q9967

== ENCOUNTER 2024-02-28 13:06 | Emergency (ER) | payer MEDICARE, MEDICAID ==
[2024-02-28 15:43] LABS: #Basophils 0.08 10x3/uL (0.0-0.2); %Basophils 1.3 % (0.0-1.0); %Eosinophils 4.5 % (0.0-10.0); %Lymphocytes 37.3 % (21.0-51.0); %Monocytes 6.6 % (0.0-10.0); Hematocrit 34.4 % (42.0-52.0); Hemoglobin 11.2 g/dL (14.0-18.0); Mean Corpuscular HGB CONC 32.6 g/dL (32.0-36.0); Mean Corpuscular Volume 89.1 fL (78.0-98.0); Mean Platelet Volume 10.6 fL (7.4-10.4); Platelet Count 192 10x3/uL (130-400); RBC Distribution Width 16.2 % (11.5-14.5); Red Blood Cell (RBC) Count 3.86 mill/uL (4.70-6.10)
[2024-02-28 16:10] LABS: ALT (SGPT) 11 U/L (8-55); AST (SGOT) 11 U/L (5-34); Albumin 3.1 g/dL (3.5-5.0); Alkaline Phosphatase 89 U/L (40-110); Anion Gap 13 mmol/L (10-20); BUN (Urea Nitrogen) 7 mg/dL (8.9-20.6); Bilirubin, Total 0.3 mg/dL (0.2-1.2); Calc. Creatinine Clearance 0 mL/min (70-130); Calcium 9.1 mg/dL (7.8-10.44); Carbon Dioxide 27 mmol/L (22-29); Chloride 102 mmol/L (98-107); Estimated GFR 141; Globulin 3.2 g/dL (2.4-3.5); Glucose 89 mg/dL (70-105); Lipase 22 U/L (8-78); Magnesium 2.2 mg/dL (1.6-2.6); Potassium 4.3 mmol/L (3.5-5.1); Protein, Total 6.3 g/dL (6.0-8.3); Sodium 138 mmol/L (136-145)
== END 2024-02-28 19:18 | disposition home or self-care (01) ==
LOC: ERS 13:06
DX: K59.00 Constipation, unspecified (principal); F17.290 Nicotine dependence, other tobacco product, uncomplicated
CPT/HCPCS: 36415; 74177; 80053; 83690; 83735; 85025

== ENCOUNTER 2025-03-03 16:49 | Emergency (ER) | payer MEDICARE, MEDICAID ==
[~2025-03-03 16:49] MED LIST: Iopamidol-370 76% 500 ML MDV (1 ML CHARGE) ONE
[2025-03-03 20:08] LABS: #Basophils 0.05 10x3/uL (0.0-0.2); #Eosinophils 0.30 10x3/uL (0.0-0.7); #Monocytes 0.45 10x3/uL (0.11-0.59); #Neutrophils 2.71 10x3/uL (1.40-6.50); %Basophils 0.9 % (0.0-1.0); %Eosinophils 5.7 % (0.0-10.0); %Lymphocytes 33.6 % (21.0-51.0); %Monocytes 8.5 % (0.0-10.0); %Neutrophils 51.1 % (42.0-75.0); Hematocrit 31.9 % (42.0-52.0); Hemoglobin 9.8 g/dL (14.0-18.0); Mean Corpuscular Hemoglobin 27.1 pg (27.0-31.0); Mean Corpuscular Volume 88.1 fL (78.0-98.0); Platelet Count 191 10x3/uL (130-400); Red Blood Cell (RBC) Count 3.62 mill/uL (4.70-6.10); White Blood Cell (WBC) Count 5.30 10x3/uL (4.8-10.8)
[2025-03-03 20:26] LABS: ALT (SGPT) Less than 7 U/L (Less than 45); AST (SGOT) 13 U/L (11-34); Albumin 3.1 g/dL (3.1-4.5); Alkaline Phosphatase 110 U/L (40-110); Anion Gap 13 mmol/L (10-20); BUN (Urea Nitrogen) 6 mg/dL (8.9-20.6); Bilirubin, Total 0.2 mg/dL (0.3-1.2); Calc. Creatinine Clearance 0 mL/min (70-130); Calcium 8.6 mg/dL (7.8-10.44); Carbon Dioxide 26 mmol/L (22-29); Chloride 108 mmol/L (98-107); Globulin 3.1 g/dL (2.4-3.5); Glucose 107 mg/dL (70-105); Lipase 16 U/L (8-78); Potassium 4.5 mmol/L (3.5-5.1); Sodium 142 mmol/L (136-145)
[2025-03-03 22:53] LABS: Glucose, Urine (Dipstick) Negative (Negative); Leukocyte Moderate (Negative); Protein, Urine (Dipstick) Trace mg/dL (Neg-Trace); Specific Gravity, Urine 1.010 (1.005-1.030)
[2025-03-03 23:00] LABS: CAUTI Indications for Culture Pelvic or flank pain; RBC/HPF Greater than 50 HPF (0-3); WBC/HPF Greater than 50 HPF (0-3)
[2025-03-03 23:02] LABS: Bacteria/HPF 1+ HPF (None Seen)
[2025-03-03 23:03] LABS: Urine Culture Reflex Yes Yes
== END 2025-03-03 23:53 | disposition home or self-care (01) ==
LOC: ERS 16:49
DX: N30.90 Cystitis, unspecified without hematuria (principal); F17.290 Nicotine dependence, other tobacco product, uncomplicated; Z79.899 Other long term (current) drug therapy
CPT/HCPCS: 74177; 80053; 81001; 83690; 85025; 87077; 87086; Q9967

== ENCOUNTER 2025-04-27 23:56 | Emergency (ER) | payer MEDICARE, MEDICAID ==
[2025-04-28 01:29] LABS: #Basophils 0.08 10x3/uL (0.0-0.2); #Eosinophils 0.26 10x3/uL (0.0-0.7); #Monocytes 0.48 10x3/uL (0.11-0.59); #Neutrophils 2.51 10x3/uL (1.40-6.50); %Basophils 1.4 % (0.0-1.0); %Eosinophils 4.6 % (0.0-10.0); %Lymphocytes 41.0 % (21.0-51.0); %Monocytes 8.5 % (0.0-10.0); %Neutrophils 44.1 % (42.0-75.0); Hematocrit 33.7 % (42.0-52.0); Hemoglobin 10.1 g/dL (14.0-18.0); Mean Corpuscular Hemoglobin 26.0 pg (27.0-31.0); Mean Corpuscular Volume 86.9 fL (78.0-98.0); Platelet Count 208 10x3/uL (130-400); Red Blood Cell (RBC) Count 3.88 mill/uL (4.70-6.10); White Blood Cell (WBC) Count 5.68 10x3/uL (4.8-10.8)
[2025-04-28 01:46] LABS: ALT (SGPT) 9 U/L (Less than 45); AST (SGOT) 14 U/L (11-34); Albumin 3.4 g/dL (3.1-4.5); Alkaline Phosphatase 101 U/L (40-110); Anion Gap 13 mmol/L (10-20); BUN (Urea Nitrogen) 9 mg/dL (8.9-20.6); Bilirubin, Total 0.1 mg/dL (0.3-1.2); Calc. Creatinine Clearance 0 mL/min (70-130); Calcium 8.6 mg/dL (7.8-10.44); Carbon Dioxide 23 mmol/L (22-29); Chloride 106 mmol/L (98-107); Globulin 3.1 g/dL (2.4-3.5); Glucose 119 mg/dL (70-105); Potassium 4.2 mmol/L (3.5-5.1); Sodium 138 mmol/L (136-145)
[2025-04-28 02:15] LABS: INR-International Normal Ratio 1.1; PTT 32.5 sec (22.9-36.1); Prothrombin Time 14.3 sec (12.0-14.7)
== END 2025-04-28 04:25 | disposition home or self-care (01) ==
LOC: ERS 23:56
DX: K92.0 Hematemesis (principal); F17.290 Nicotine dependence, other tobacco product, uncomplicated
CPT/HCPCS: 36415; 71045; 80053; 83605; 85025; 85610; 85730; 87040; 93005